=== PATIENT | female | born 1965 | race Caucasian/White ===

== ENCOUNTER 2016-09-09 19:46 | Emergency (ER) | payer MEDICAID, OTHER, SELFPAY ==
--- NOTE | 2016-09-09 21:10 | REPUSA ---
CT of the head Clinical history: Headache. Trauma. Technique: Multiple axial CT images were obtained through the head without administration of contrast . Findings: The ventricles and sulci are symmetric bilaterally. There is no evidence of acute hemorrhag e or infarct. There is no midline shift, mass effect, or extra-axial fluid collection. The osseous st ructures are unremarkable. The visualized paranasal sinuses and mastoid air cells are clear. Impression: Negative study.
[2016-09-09] MEDS ORDERED: IBUPROFEN 800 MG TAB As Ordered ONE (21:53)
--- NOTE | 2016-09-09 22:40 | EDDOCDS ---
Physician Documentation [facility] Name: Sandra Lilly Age: 51 yrs Sex: Female : 1965 Arrival Date: 09/09/2016 Time: 19:46 Bed PR Private MD: Odalis Julien M. Disposition: 09/09/16 21:44 Discharged to Home/Self Care. Impression: Unspecified injury of head. - Condition is Stable. - Discharge Instructions: Head Injury, Adult. - Medication Reconciliation, Local Pharmacy Hours form. - Follow up: Александр Hawkins; When: As needed; Reason: Further diagnostic work-up. Follow up: Odalis Julien; When: Call to arrange an appointment; Reason: Recheck today's complaints, Continuance of care. - Problem is new. - Symptoms have improved. Historical: - Allergies: no known allergies; - Home Meds: 1. Methadone 45mg Oral once daily - PMHx: Sleep Apnea w/ CPAP; - PSHx: none; - Social history: Smoking status: Patient uses tobacco products, heavy tobacco smoker. No barriers to communication noted, The patient speaks fluent Lithuanian, Speaks appropriately for age. - Family history: Not pertinent. - : The pt / caregiver states he / she is not on anticoagulants. Home medication list is obtained from the patient. - Exposure Risk Screening:: None identified. 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 5 in. (165.10 cm) (R); Pain 6/10; 21:56 BP 170 / 100; Pulse 79; Resp 18; Temp 98.4(O); Pulse Ox 95% on R/A; Pain 5/10; mcp 22:36 BP 169 / 74 RA Sitting (auto/reg); cln 19:48 Body Mass Index 32.95 (89.81 kg, 165.10 cm) gr2 MDM: 20:37 CT Head Without Contrast Ordered. EDMS 21:18 Financial registration complete. gjb 21:53 Ibuprofen 800 mg PO once ordered. ar2 21:58 [facility] Payment Agreement was scanned into [employer] and attached to record. gjb Administered Medications: : Drug: Ibuprofen 800 mg [ibuprofen 800 mg tablet (1 tabs)] Route: PO; [facility] Signatures: Dispatcher [employer] Joy Cancino RN RN Anjum Collazo PA-C PA-C ar2 Myrtle Vines RN RN terry3 Chaparrita Orosco The chart was reviewed and I authenticate all verbal orders and agree with the evaluation and treatment provided.Attachments: :58 [facility] Payment Agreement gjb MTDD
--- NOTE | 2016-09-09 22:40 | EDDOCDS ---
Nurse's Notes [facility] Name: Sandra Lilly Age: 51 yrs Sex: Female : 1965 Arrival Date: 09/09/2016 Time: 19:46 Bed PR Private MD: Odalis Julien M. Diagnosis: Unspecified injury of head Presentation: 09/09 19:55 Presenting complaint: Patient states: seen at eye MD today and was told eyes were kc3 fluttering and sent here for eval. Pt reports fell x 3 weeks ago on the ice with reported head injury. Pt reports was not seen for fall. Pt sent here by MD at [facility]. This patient has no additional risk factors. Adult Sepsis Screening: The patient does not have new or worsening altered mentation. Patient's respiratory rate is less than 22. Systolic blood pressure is greater than 100. Patient has a qSOFA score of 0- Negative Sepsis Screen. Suicide/Homicide risk assessment- the patient denies having any suicidal and/or homicidal ideations and does not present with any other emotional, behavioral or mental health complaints. 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 Transition of care: patient was not received from another setting of care. 19:55 Acuity: SUSANA Level 3 kc3 19:55 Method Of Arrival: Walkin/Carried/Asstd kc3 Triage Assessment: 19:59 Headache History: A change in the character of the headache the patient is experiencing kc3 has occured. General: Appears in no apparent distress, comfortable, Behavior is appropriate for age, cooperative. Pain: Pain currently is 5 out of 10 on a pain scale. Pain began 3weeks ago, pain is intermittent Also complains of inability to concentrate, shortness of breath. Pt Declines HIV testing. Neurological: Level of Consciousness is awake, alert, obeys commands, Oriented to person, place, time. Respiratory: Respiratory effort is even, unlabored. 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 Methadone 45mg Oral once daily - PMHx: Sleep Apnea w/ CPAP; - PSHx: none; - Social history: Smoking status: Patient uses tobacco products, heavy tobacco smoker. No barriers to communication noted, The patient speaks fluent Upper Sorbian, Speaks appropriately for age. - Family history: Not pertinent. - : The pt / caregiver states he / she is not on anticoagulants. Home medication list is obtained from the patient. - Exposure Risk Screening:: None identified. Screenin:57 Screening information is obtained from the patient. Fall risk: No risks identified. mcp Assistance ADL's: requires no assistance with activities of daily living. Abuse/DV Screen: The patient / caregiver reports he/she is: not in a situation that causes fear, pain or injury. Nutritional screening: No deficits noted. Advance Directives: There is no active DNR order. home support is adequate. Assessment: 21:56 General: Pts bp elevated 170/100. Estela Land notified and Motrin 800mg given for mcp headache. To check bp in 30 minutes. 22:38 General: States headache less. BP decreased. [facility] Vital Signs: 19:48 BP 142 / 88; Pulse 82; Resp 18 S; Temp 98.9(O); Pulse Ox 98% on R/A; Weight 89.81 kg gr2 (R); Height 5 ft. 5 in. (165.10 cm) (R); Pain 6/10; 21:56 BP 170 / 100; Pulse 79; Resp 18; Temp 98.4(O); Pulse Ox 95% on R/A; Pain 5/10; mcp 22:36 BP 169 / 74 RA Sitting (auto/reg); cln 19:48 Body Mass Index 32.95 (89.81 kg, 165.10 cm) gr2 Vitals: 19:48 Log In Time: September 09, 2016 at 19:48. gr2 ED Course: 19:48 Patient visited by Italo Arango. gr2 19:48 Odalis Julien is Private Physician. gr2 19:48 Patient moved to Waiting gr2 19:50 Patient visited by Italo Arango. gr2 19:50 Patient moved to Pre RCE gr2 19:58 Triage Initiated kc3 20:02 Patient moved to Triage 3 kc3 20:21 Anjum Land PA-C is PHCP. ar2 20:21 Ole Vang DO is Attending Physician. ar2 20:21 Patient visited by Anjum Land PA-C. ar2 20:45 Patient moved to TR2 cz 21:10 CT Head Without Contrast Returned. EDMS 21:29 Patient moved to PR1 / 25 cln 21:43 Александр Hawkins is Referral Physician. ar2 21:43 Odalis Julien is Referral Physician. ar2 21:57 Patient name changed from Sandra\S\\S\Lilly\S\ to Sandra\S\ \S\Lilly. EDMS 21:57 Patient visited by Joy Mckeon RN. [facility] 21:57 The patient / caregiver is instructed regarding the plan of care and ED course. Patient mcp has correct armband on for positive identification. Bed in low position. Call light in reach. Adult w/ patient. 21:57 No IV's were initiated during this patient's visit. No procedures done that require mcp assistance. 21:58 [facility] Payment Agreement was scanned into [employer] and attached to record. [facility] 22:36 Patient visited by Danyelle Siddiqi PCA. cln Administered Medications: 21:58 Drug: Ibuprofen 800 mg [ibuprofen 800 mg tablet (1 tabs)] Route: PO; [facility] Order Results: Radiology Order: CT Head Without Contrast Test: CT Head Without Contrast REASON FOR EXAMINATION: posterior trauma; ; CT of the head; Clinical history: Headache. Trauma.; Technique: Multiple axial CT images were obtained through the head without administration of contrast; .; Findings: The ventricles and sulci are symmetric bilaterally. There is no evidence of acute hemorrhag; e or infarct. There is no midline shift, mass effect, or extra-axial fluid collection. The osseous st; ructures are unremarkable. The visualized paranasal sinuses and mastoid air cells are clear.; Impression: Negative study.; ; Outcome: 21:44 Discharge ordered by Provider. ar2 22:38 Discharge Assessment: patient administered narcotics - no. The following High Risk [facility] Discharge criteria are identified: None. Discharged to home ambulatory, with significant other. Condition: stable. Discharge instructions given to patient, Instructed on discharge instructions, follow up and referral plans. Demonstrated understanding of instructions, Pt was receptive of discharge instructions/ teaching. CT Study completed. Property sent home with patient. 22:39 Patient left the ED. [facility] Signatures: Dispatcher [facility] EDNM Joy Mckeon RN RN mcp Zecher, Calvin, RN RN cz Robertshaw, Anjum, PA-C PAJames ar2 Italo Arango gr2 Myrtle Vines,BRENDEN RN kc3 Chaparrita Orosco, Danyelle, JESSICA GOODWILL AMBASSADOR cln MTDD
--- NOTE | 2016-09-11 23:40 | EDDOCDS ---
Nurse's Notes [facility] Name: Sandra Lilly Age: 51 yrs Sex: Female : 1965 Arrival Date: 09/09/2016 Time: 19:46 Bed PR Private MD: Odalis Julien M. Diagnosis: Unspecified injury of head Presentation: 09/09 19:55 Presenting complaint: Patient states: seen at eye MD today and was told eyes were kc3 fluttering and sent here for eval. Pt reports fell x 3 weeks ago on the ice with reported head injury. Pt reports was not seen for fall. Pt sent here by MD at [facility]. This patient has no additional risk factors. Adult Sepsis Screening: The patient does not have new or worsening altered mentation. Patient's respiratory rate is less than 22. Systolic blood pressure is greater than 100. Patient has a qSOFA score of 0- Negative Sepsis Screen. Suicide/Homicide risk assessment- the patient denies having any suicidal and/or homicidal ideations and does not present with any other emotional, behavioral or mental health complaints. Status: Patient is not a director of housing and energy services or dependent. Transition of care: patient was not received from another setting of care. 19:55 Acuity: SUSANA Level 3 kc3 19:55 Method Of Arrival: Walkin/Carried/Asstd kc3 Triage Assessment: 19:59 Headache History: A change in the character of the headache the patient is experiencing kc3 has occured. General: Appears in no apparent distress, comfortable, Behavior is appropriate for age, cooperative. Pain: Pain currently is 5 out of 10 on a pain scale. Pain began 3weeks ago, pain is intermittent Also complains of inability to concentrate, shortness of breath. Pt Declines HIV testing. Neurological: Level of Consciousness is awake, alert, obeys commands, Oriented to person, place, time. Respiratory: Respiratory effort is even, unlabored. 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 Methadone 45mg Oral once daily - PMHx: Sleep Apnea w/ CPAP; - PSHx: none; - Social history: Smoking status: Patient uses tobacco products, heavy tobacco smoker. No barriers to communication noted, The patient speaks fluent Latvian, Speaks appropriately for age. - Family history: Not pertinent. - : The pt / caregiver states he / she is not on anticoagulants. Home medication list is obtained from the patient. - Exposure Risk Screening:: None identified. Screenin:57 Screening information is obtained from the patient. Fall risk: No risks identified. mcp Assistance ADL's: requires no assistance with activities of daily living. Abuse/DV Screen: The patient / caregiver reports he/she is: not in a situation that causes fear, pain or injury. Nutritional screening: No deficits noted. Advance Directives: There is no active DNR order. home support is adequate. Assessment: 21:56 General: Pts bp elevated 170/100. Estela Land notified and Motrin 800mg given for mcp headache. To check bp in 30 minutes. 22:38 General: States headache less. BP decreased. [facility] Vital Signs: 19:48 BP 142 / 88; Pulse 82; Resp 18 S; Temp 98.9(O); Pulse Ox 98% on R/A; Weight 89.81 kg gr2 (R); Height 5 ft. 5 in. (165.10 cm) (R); Pain 6/10; 21:56 BP 170 / 100; Pulse 79; Resp 18; Temp 98.4(O); Pulse Ox 95% on R/A; Pain 5/10; mcp 22:36 BP 169 / 74 RA Sitting (auto/reg); cln 19:48 Body Mass Index 32.95 (89.81 kg, 165.10 cm) gr2 Vitals: 19:48 Log In Time: September 09, 2016 at 19:48. gr2 ED Course: 19:48 Patient visited by Italo Arango. gr2 19:48 Odalis Julien is Private Physician. gr2 19:48 Patient moved to Waiting gr2 19:50 Patient visited by Italo Arango. gr2 19:50 Patient moved to Pre RCE gr2 19:58 Triage Initiated kc3 20:02 Patient moved to Triage 3 kc3 20:21 Anjum Land PA-C is PHCP. ar2 20:21 Ole Vang DO is Attending Physician. ar2 20:21 Patient visited by Anjum Land PA-C. ar2 20:45 Patient moved to TR2 cz 21:10 CT Head Without Contrast Returned. EDMS 21:29 Patient moved to PR1 / cln 21:43 Александр Hawkins is Referral Physician. ar2 21:43 Odalis Julien is Referral Physician. ar2 21:57 Patient name changed from Sandra\S\\S\Lilly\S\ to Sandra\S\ \S\Lilly. EDMS 21:57 Patient visited by Joy Mckeon RN. mcp 21:57 The patient / caregiver is instructed regarding the plan of care and ED course. Patient mcp has correct armband on for positive identification. Bed in low position. Call light in reach. Adult w/ patient. 21:57 No IV's were initiated during this patient's visit. No procedures done that require mcp assistance. 21:58 [facility] Payment Agreement was scanned into [employer] and attached to record. gjb 22:36 Patient visited by Danyelle Siddiqi PCA. cln 09/10 10:13 T-Sheet-- Draft Copy was scanned into [employer] and attached to record. gb 10:13 Radiology Report was scanned into [employer] and attached to record. gb Administered Medications: 09/09 21:58 Drug: Ibuprofen 800 mg [ibuprofen 800 mg tablet (1 tabs)] Route: PO; mcp Order Results: Radiology Order: CT Head Without Contrast Test: CT Head Without Contrast REASON FOR EXAMINATION: posterior trauma; ; CT of the head; Clinical history: Headache. Trauma.; Technique: Multiple axial CT images were obtained through the head without administration of contrast; .; Findings: The ventricles and sulci are symmetric bilaterally. There is no evidence of acute hemorrhag; e or infarct. There is no midline shift, mass effect, or extra-axial fluid collection. The osseous st; ructures are unremarkable. The visualized paranasal sinuses and mastoid air cells are clear.; Impression: Negative study.; ; Outcome: 21:44 Discharge ordered by Provider. ar2 22:38 Discharge Assessment: patient administered narcotics - no. The following High Risk mcp Discharge criteria are identified: None. Discharged to home ambulatory, with significant other. Condition: stable. Discharge instructions given to patient, Instructed on discharge instructions, follow up and referral plans. Demonstrated understanding of instructions, Pt was receptive of discharge instructions/ teaching. CT Study completed. Property sent home with patient. 22:39 Patient left the ED. [facility] Signatures: Dispatcher [employer] Joy Cancino RN RN Macario Kim RN RN cz Barnhardt, Gloria, Jean Reg Anjum Fofana PA-C PAJames ar2 Italo Arango gr2 Myrtle Vines RN RN kc3 Chaparrita Oroscob Danyelle Siddiqi, JESSICA AXLE TURNER cln Chart Complete MTDD
--- NOTE | 2016-09-11 23:40 | EDDOCDS ---
Physician Documentation [facility] Name: Sandra Lilly Age: 51 yrs Sex: Female : 1965 Arrival Date: 09/09/2016 Time: 19:46 Bed PR Private MD: Odalis Julien M. Disposition: 09/09/16 21:44 Discharged to Home/Self Care. Impression: Unspecified injury of head. - Condition is Stable. - Discharge Instructions: Head Injury, Adult. - Medication Reconciliation, Local Pharmacy Hours form. - Follow up: Александр Hawkins; When: As needed; Reason: Further diagnostic work-up. Follow up: Odalis Julien; When: Call to arrange an appointment; Reason: Recheck today's complaints, Continuance of care. - Problem is new. - Symptoms have improved. Historical: - Allergies: no known allergies; - Home Meds: 1. Methadone 45mg Oral once daily - PMHx: Sleep Apnea w/ CPAP; - PSHx: none; - Social history: Smoking status: Patient uses tobacco products, heavy tobacco smoker. No barriers to communication noted, The patient speaks fluent Vietnamese, Speaks appropriately for age. - Family history: Not pertinent. - : The pt / caregiver states he / she is not on anticoagulants. Home medication list is obtained from the patient. - Exposure Risk Screening:: None identified. 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 5 in. (165.10 cm) (R); Pain 6/10; 21:56 BP 170 / 100; Pulse 79; Resp 18; Temp 98.4(O); Pulse Ox 95% on R/A; Pain 5/10; mcp 22:36 BP 169 / 74 RA Sitting (auto/reg); cln 19:48 Body Mass Index 32.95 (89.81 kg, 165.10 cm) gr2 MDM: 20:37 CT Head Without Contrast Ordered. EDMS 21:18 Financial registration complete. gjb 21:53 Ibuprofen 800 mg PO once ordered. ar2 21:58 [facility] Payment Agreement was scanned into [employer] and attached to record. gjb 09/10 10:13 T-Sheet-- Draft Copy was scanned into [employer] and attached to record. gb 10:13 Radiology Report was scanned into [employer] and attached to record. gb Administered Medications: 09/09 21:58 Drug: Ibuprofen 800 mg [ibuprofen 800 mg tablet (1 tabs)] Route: PO; [facility] Signatures: Dispatcher [employer] Joy Cancino RN RN Jeanette Montoya, Reg Reg Anjum Fofana PA-C PAJames ar2 Myrtle Vines RN RN kc3 Chaparrita Orosco The chart was reviewed and I authenticate all verbal orders and agree with the evaluation and treatment provided.Attachments: 21:58 [facility] Payment Agreement [facility] 09/10 10:13 T-Sheet-- Draft Copy gb Chart Complete MTDD
--- NOTE | 2016-09-11 23:40 | EDDOCDS ---
Physician Documentation [facility] Name: Sandra Lilly Age: 51 yrs Sex: Female : 1965 Arrival Date: 09/09/2016 Time: 19:46 Bed PR Private MD: Odalis Julien M. Disposition: 09/09/16 21:44 Discharged to Home/Self Care. Impression: Unspecified injury of head. - Condition is Stable. - Discharge Instructions: Head Injury, Adult. - Medication Reconciliation, Local Pharmacy Hours form. - Follow up: Александр Hawkins; When: As needed; Reason: Further diagnostic work-up. Follow up: Odalis Julien; When: Call to arrange an appointment; Reason: Recheck today's complaints, Continuance of care. - Problem is new. - Symptoms have improved. Historical: - Allergies: no known allergies; - Home Meds: 1. Methadone 45mg Oral once daily - PMHx: Sleep Apnea w/ CPAP; - PSHx: none; - Social history: Smoking status: Patient uses tobacco products, heavy tobacco smoker. No barriers to communication noted, The patient speaks fluent Telugu, Speaks appropriately for age. - Family history: Not pertinent. - : The pt / caregiver states he / she is not on anticoagulants. Home medication list is obtained from the patient. - Exposure Risk Screening:: None identified. 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 5 in. (165.10 cm) (R); Pain 6/10; 21:56 BP 170 / 100; Pulse 79; Resp 18; Temp 98.4(O); Pulse Ox 95% on R/A; Pain 5/10; mcp 22:36 BP 169 / 74 RA Sitting (auto/reg); cln 19:48 Body Mass Index 32.95 (89.81 kg, 165.10 cm) gr2 MDM: 20:37 CT Head Without Contrast Ordered. EDMS 21:18 Financial registration complete. gjb 21:53 Ibuprofen 800 mg PO once ordered. ar2 21:58 [facility] Payment Agreement was scanned into [employer] and attached to record. gjb 09/10 10:13 T-Sheet-- Draft Copy was scanned into [employer] and attached to record. gb 10:13 Radiology Report was scanned into [employer] and attached to record. gb Administered Medications: 09/09 21:58 Drug: Ibuprofen 800 mg [ibuprofen 800 mg tablet (1 tabs)] Route: PO; [facility] Signatures: Dispatcher [employer] Joy Cancino RN RN Jeanette Montoya, Reg Reg Anjum Fofana PA-C PAJames ar2 Myrtle Vines RN RN kc3 Chaparrita Orosco The chart was reviewed and I authenticate all verbal orders and agree with the evaluation and treatment provided.Attachments: 21:58 [facility] Payment Agreement [facility] 09/10 10:13 T-Sheet-- Draft Copy gb Chart Complete MTDD
== END 2016-09-09 22:39 | disposition home or self-care (01) ==
LOC: M ED 19:46
DX: S09.90XA Unspecified injury of head, initial encounter (principal); G47.33 Obstructive sleep apnea (adult) (pediatric); Z72.0 Tobacco use; Z79.899 Other long term (current) drug therapy; W00.0XXA Fall on same level due to ice and snow, initial encounter; Y92.89 Other specified places as the place of occurrence of the external cause; Y93.01 Activity, walking, marching and hiking; Y99.9 Unspecified external cause status

== ENCOUNTER → 2017-11-04 | Outpatient (CLI) | payer MEDICAID ==
[2017-11-04 08:36] LABS: HEMATOCRIT 38.6 % (36.0-47.0); HEMOGLOBIN 12.8 g/dl (12.0-15.5); MEAN CORPUSCULAR HEMOGLOBIN 30.2 pg (27.0-33.0); MEAN CORPUSCULAR HGB CONC 33.2 g/dl (32.0-36.5); PLATELET COUNT, AUTOMATED 288 10^3/uL (150-450); RED BLOOD COUNT 4.24 10^6/uL (4.00-5.40); RED CELL DISTRIBUTION WIDTH 12.5 % (11.5-14.5); WHITE BLOOD COUNT 6.5 10^3/uL (4.0-10.0)
[2017-11-04 08:57] LABS: CONTROL LINE HCG INT CTR LINE PRESENT; HCG, SERUM QUALITATIVE NEGATIVE (NEGATIVE)
[2017-11-04 09:03] LABS: ALBUMIN/GLOBULIN RATIO 1.11 (1.00-1.93); ALKALINE PHOSPHATASE 92 U/L (45-117); ALT/SGPT 35 U/L (12-78); ANION GAP 4 MEQ/L (8-16); AST/SGOT 26 U/L (7-37); BILIRUBIN,TOTAL 0.2 MG/DL (0.2-1.0); BLOOD UREA NITROGEN 14 MG/DL (7-18); CALCIUM LEVEL 9.2 MG/DL (8.5-10.1); CARBON DIOXIDE LEVEL 33 MEQ/L (21-32); CHLORIDE LEVEL 107 MEQ/L (98-107); CREATININE FOR GFR 1.09 MG/DL (0.55-1.30); GLOMERULAR FILTRATION RATE 56.1 (>51); GLUCOSE, FASTING 108 MG/DL (70-100); POTASSIUM SERUM 3.9 MEQ/L (3.5-5.1); SODIUM LEVEL 144 MEQ/L (136-145); TOTAL PROTEIN 7.6 GM/DL (6.4-8.2)
[2017-11-04 10:09] LABS: CHLAMYDIA DNA AMPLIFICATION NEGATIVE (NEGATIVE); GC DNA AMPLIFICATION NEGATIVE (NEGATIVE)
[2017-11-06 11:39] LABS: HEPATITIS B SURFACE ANTIGEN NEGATIVE (NEGATIVE)
[2017-11-06 12:08] LABS: HIV 1&2 SCREEN CENTAUR NEGATIVE (NEGATIVE)
[2017-11-06 12:35] LABS: HEPATITIS C VIRUS ABY INDEX > 11.0 INDEX (<0.8)
== END ==
LOC: M LAB 08:03
DX: F11.20 Opioid dependence, uncomplicated (principal); R94.31 Abnormal electrocardiogram [ECG] [EKG]
CPT/HCPCS: 93005

== ENCOUNTER → 2018-04-20 | Outpatient (REF) | payer OTHER ==
[2018-04-20 12:31] LABS: BASO # 0.1 10^3/uL (0.0-0.2); BASO % 0.8 % (0.0-1.0); EOS # 0.2 10^3/uL (0.0-0.50); EOS % 2.9 % (0.0-3.0); HEMATOCRIT 41.2 % (36.0-47.0); HEMOGLOBIN 13.5 g/dl (12.0-15.5); IMMATURE GRANULOCYTE % 0.3 % (0-3.0); LYMPH # 2.5 10^3/uL (1.5-4.5); LYMPH % 33.9 % (24.0-44.0); MEAN CORPUSCULAR HEMOGLOBIN 29.7 pg (27.0-33.0); MEAN CORPUSCULAR HGB CONC 32.8 g/dl (32.0-36.5); MEAN CORPUSCULAR VOLUME 90.5 fl (80.0-96.0); MONO # 0.6 10^3/uL (0.0-0.8); MONO % 7.8 % (0.0-5.0); NEUTROPHILS % 54.3 % (36.0-66.0); PLATELET COUNT, AUTOMATED 257 10^3/uL (150-450); RED BLOOD COUNT 4.55 10^6/uL (4.00-5.40); RED CELL DISTRIBUTION WIDTH 12.8 % (11.5-14.5); WHITE BLOOD COUNT 7.3 10^3/uL (4.0-10.0)
[2018-04-20 12:38] LABS: APPEARANCE, URINE HAZY (CLEAR); BACTERIA, URINE AUTO NEGATIVE (NEGATIVE); BILIRUBIN, URINE AUTO NEGATIVE (NEGATIVE); BLOOD, URINE BLOOD NEGATIVE (NEGATIVE); COLOR, URINE YELLOW (YELLOW); GLUCOSE, URINE (UA) AUTO NEGATIVE (NEGATIVE); KETONE, URINE AUTO NEGATIVE (NEGATIVE); LEUKOCYTE ESTERASE, URINE AUTO TRACE (NEGATIVE); NITRITE, URINE AUTO NEGATIVE (NEGATIVE); PROTEIN, URINE AUTO NEGATIVE (NEGATIVE); RBC, URINE AUTO 2 /HPF (0-3); SPECIFIC GRAVITY URINE AUTO 1.021 (1.002-1.035); SQUAMOUS EPITHELIAL CELL UR AU 1 /HPF (0-6); UROBILINOGEN, URINE AUTO 0.2 mg/dL (0.0-2.0); WBC, URINE AUTO 1 /HPF (0-3)
[2018-04-20 13:35] LABS: ALBUMIN 3.9 GM/DL (3.2-5.2); ALBUMIN/GLOBULIN RATIO 1.22 (1.00-1.93); ALKALINE PHOSPHATASE 82 U/L (45-117); ALT/SGPT 25 U/L (12-78); ANION GAP 8 MEQ/L (8-16); AST/SGOT 20 U/L (7-37); BILIRUBIN,TOTAL 0.4 MG/DL (0.2-1.0); BLOOD UREA NITROGEN 23 MG/DL (7-18); CALCIUM LEVEL 8.9 MG/DL (8.5-10.1); CARBON DIOXIDE LEVEL 28 MEQ/L (21-32); CHLORIDE LEVEL 105 MEQ/L (98-107); GLOMERULAR FILTRATION RATE > 60.0 (>51); GLUCOSE, FASTING 93 MG/DL (70-100); POTASSIUM SERUM 4.2 MEQ/L (3.5-5.1); SODIUM LEVEL 141 MEQ/L (136-145); TOTAL PROTEIN 7.1 GM/DL (6.4-8.2)
== END ==
LOC: M SFHCPLAZ 08:15
DX: R10.9 Unspecified abdominal pain (principal)

== ENCOUNTER → 2018-04-25 | Outpatient (CLI) | payer OTHER | LOC: M RAD 07:42 | DX: R10.9 Unspecified abdominal pain (principal) | CPT/HCPCS: 76775 ==

== ENCOUNTER → 2018-11-04 | Outpatient (CLI) | payer OTHER ==
[2018-11-04 10:55] LABS: HEMATOCRIT 43.1 % (36.0-47.0); HEMOGLOBIN 14.5 g/dl (12.0-15.5); MEAN CORPUSCULAR HEMOGLOBIN 30.7 pg (27.0-33.0); MEAN CORPUSCULAR HGB CONC 33.6 g/dl (32.0-36.5); MEAN CORPUSCULAR VOLUME 91.3 fl (80.0-96.0); PLATELET COUNT, AUTOMATED 234 10^3/uL (150-450); RED BLOOD COUNT 4.72 10^6/uL (4.00-5.40); WHITE BLOOD COUNT 6.9 10^3/uL (4.0-10.0)
--- NOTE | 2018-11-04 11:11 | ECGEPIP ---
Stationary ECG Study [facility] Test Date: 2018-11-04 Pat Name: CHELSEA BRAMBILA Department: Room: - Gender: F Behavioral Health Assistant: : 1965 Requested By: Swapnil Sethi Order Number: [id number] Reading MD: Александр Moffett Measurements Intervals [place] Rate: 62 P: 70 NE: 152 QRS: 52 QRSD: 90 T: 51 QT: 368 QTc: 376 Interpretive Statements SINUS RHYTHM, Within normal limits. Improved T wave morphology compared with 11/04/2017 at 8:30 AM. Electronically Signed On 11-04-2018 11:10:39 EDT by Александр Moffett
[2018-11-04 11:24] LABS: HCG, SERUM QUALITATIVE NEGATIVE (NEGATIVE)
[2018-11-04 11:25] LABS: ALBUMIN 3.9 GM/DL (3.2-5.2); ALT/SGPT 31 U/L (12-78); BILIRUBIN,TOTAL 0.2 MG/DL (0.2-1.0); BLOOD UREA NITROGEN 20 MG/DL (7-18); CALCIUM LEVEL 8.8 MG/DL (8.5-10.1); CARBON DIOXIDE LEVEL 32 MEQ/L (21-32); CHLORIDE LEVEL 106 MEQ/L (98-107); CREATININE FOR GFR 0.84 MG/DL (0.55-1.30); GLOMERULAR FILTRATION RATE > 60.0 (>51); GLUCOSE, FASTING 130 MG/DL (70-100); POTASSIUM SERUM 4.4 MEQ/L (3.5-5.1); SODIUM LEVEL 143 MEQ/L (136-145); TOTAL PROTEIN 6.8 GM/DL (6.4-8.2)
[2018-11-04 12:37] LABS: CHLAMYDIA DNA AMPLIFICATION NEGATIVE (NEGATIVE); GC DNA AMPLIFICATION NEGATIVE (NEGATIVE)
[2018-11-05 10:26] LABS: HEPATITIS B SURFACE ANTIGEN NEGATIVE (NEGATIVE)
[2018-11-05 10:55] LABS: HIV 1&2 SCREEN CENTAUR NEGATIVE (NEGATIVE)
[2018-11-05 11:04] LABS: HEPATITIS C VIRUS ABY INDEX > 11.0 INDEX (<0.8)
== END ==
LOC: M LAB 10:18
PROVIDERS: ATTEND Family Medicine
DX: F11.20 Opioid dependence, uncomplicated (principal)

== ENCOUNTER → 2020-04-04 | Outpatient (CLI) | payer OTHER ==
[2020-04-04 09:22] LABS: HEMATOCRIT 46.7 % (36.0-47.0); HEMOGLOBIN 15.2 g/dl (12.0-15.5); MEAN CORPUSCULAR HEMOGLOBIN 30.3 pg (27.0-33.0); MEAN CORPUSCULAR HGB CONC 32.5 g/dl (32.0-36.5); PLATELET COUNT, AUTOMATED 193 10^3/uL (150-450); RED BLOOD COUNT 5.02 10^6/uL (4.00-5.40); WHITE BLOOD COUNT 6.8 10^3/uL (4.0-10.0)
[2020-04-04 10:02] LABS: HCG, SERUM QUALITATIVE NEGATIVE (NEGATIVE)
[2020-04-04 11:35] LABS: CHLAMYDIA DNA AMPLIFICATION NEGATIVE (NEGATIVE); GC DNA AMPLIFICATION NEGATIVE (NEGATIVE)
[2020-04-04 14:45] LABS: ALBUMIN 3.8 GM/DL (3.2-5.2); ALT/SGPT 24 U/L (12-78); BILIRUBIN,TOTAL 0.2 MG/DL (0.2-1.0); BLOOD UREA NITROGEN 18 MG/DL (7-18); CALCIUM LEVEL 8.9 MG/DL (8.5-10.1); CARBON DIOXIDE LEVEL 31 MEQ/L (21-32); CHLORIDE LEVEL 107 MEQ/L (98-107); CREATININE FOR GFR 0.73 MG/DL (0.55-1.30); GLOMERULAR FILTRATION RATE > 60.0 (>51); GLUCOSE, FASTING 113 MG/DL (70-100); HCG, SERUM QUANTITATIVE 4 MIU/ML; POTASSIUM SERUM 4.4 MEQ/L (3.5-5.1); SODIUM LEVEL 139 MEQ/L (136-145)
[2020-04-06 10:06] LABS: HEPATITIS B SURFACE ANTIGEN NEGATIVE (NEGATIVE)
[2020-04-06 10:34] LABS: HIV 1&2 SCREEN CENTAUR NEGATIVE (NEGATIVE)
--- NOTE | 2020-04-08 11:50 | ECGEPIP ---
[facility] Test Date: 2020-04-04 Pat Name: CHELSEA BRAMBILA Department: Room: - Gender: Female Surveillance Investigator: RF : 1965 Requested By: Swapnil Sethi Order Number: [id number] Reading MD: Efren Mendoza Measurements Intervals [place] Rate: 55 P: 72 RI: 170 QRS: 41 QRSD: 87 T: 47 QT: 416 QTc: 401 Interpretive Statements SINUS BRADYCARDIA OTHERWISE NS SEE DOWNTIME SCANNED RECORD
== END ==
LOC: M LAB 08:16
PROVIDERS: ATTEND Family Medicine
DX: F11.10 Opioid abuse, uncomplicated (principal)

== ENCOUNTER → 2020-06-26 | Outpatient (CLI) | payer OTHER | LOC: M LABSMTC 13:25 | PROVIDERS: ATTEND Family Medicine | DX: Z20.828 Contact with and (suspected) exposure to other viral communicable diseases (principal) ==

== ENCOUNTER → 2020-09-14 | Outpatient (CLI) | payer SELFPAY | LOC: M LABSMTC 10:58 | PROVIDERS: ATTEND Pediatrics | DX: Z20.822 Contact with and (suspected) exposure to COVID-19 (principal) ==

== ENCOUNTER → 2021-08-18 | Outpatient (REF) | payer OTHER ==
[~2021-08-18] MED LIST: LASI20TA3 PO; PRED10TA2 PO; does not take meds
== END ==
LOC: M LAB REF 13:28
PROVIDERS: ATTEND Pediatrics
DX: E87.5 Hyperkalemia (principal)

== ENCOUNTER → 2021-10-01 | Outpatient (CLI) | payer OTHER ==
[~2021-10-01] MED LIST changes: +ASPI-163 PO; +ATOR40TA75 PO; +METH-1177 PO
== END ==
LOC: M LABSMTC 10:53
PROVIDERS: ATTEND Anesthesiology
DX: Z01.812 Encounter for preprocedural laboratory examination (principal); Z20.822 Contact with and (suspected) exposure to COVID-19

== ENCOUNTER 2021-10-06 11:55 | Day surgery (SDC) | payer OTHER ==
[~2021-10-06] VITALS: Ht 165.1 cm; Wt 88.6 kg
[~2021-10-06 11:55] MED LIST changes: +NS 1,000 ML IV ONE
[2021-10-06] MEDS ORDERED: propofoL 200 MG/20 ML VIAL As Ordered ONE ×2 (14:32→14:43)
[2021-10-06 15:02] VITALS: BP 115/58
== END 2021-10-06 15:24 | disposition home or self-care (01) ==
LOC: M OPP 11:55
PROVIDERS: ATTEND Surgery
DX: Z12.11 Encounter for screening for malignant neoplasm of colon (principal); D12.2 Benign neoplasm of ascending colon; K57.30 Diverticulosis of large intestine without perforation or abscess without bleeding; K64.0 First degree hemorrhoids; G47.30 Sleep apnea, unspecified; Z79.82 Long term (current) use of aspirin; Z79.899 Other long term (current) drug therapy; F17.210 Nicotine dependence, cigarettes, uncomplicated; Z86.74 Personal history of sudden cardiac arrest; Z87.448 Personal history of other diseases of urinary system

== ENCOUNTER 2021-11-20 07:18 | Inpatient (IN) | payer OTHER ==
[~2021-11-20] VITALS: Ht 165.1 cm; Wt 87.2 kg
[~2021-11-20 07:18] MED LIST changes: -NS 1,000 ML IV ONE
[2021-11-20] MEDS ORDERED: CHARCOAL ACTIVATED LIQUID 25 GM/120 ML BTL PO ONE (07:55)
[2021-11-20 08:18] LABS: BASO # 0.1 10^3/uL (0.0-0.2); BASO % 0.9 % (0.0-1.0); EOS # 0.1 10^3/uL (0.0-0.5); EOS % 1.6 % (0.0-3.0); HEMATOCRIT 45.9 % (36.0-47.0); HEMOGLOBIN 14.8 g/dl (12.0-15.5); LYMPH # 1.5 10^3/uL (1.5-5.0); LYMPH % 26.8 % (24.0-44.0); MEAN CORPUSCULAR HEMOGLOBIN 30.2 pg (27.0-33.0); MEAN CORPUSCULAR HGB CONC 32.2 g/dl (32.0-36.5); MEAN CORPUSCULAR VOLUME 93.7 fl (80.0-96.0); MONO # 0.3 10^3/uL (0.0-0.8); MONO % 6.1 % (2.0-8.0); NEUTROPHILS # 3.6 10^3/uL (1.5-8.5); NEUTROPHILS % 64.2 % (36.0-66.0); PLATELET COUNT, AUTOMATED 211 10^3/uL (150-450); WHITE BLOOD COUNT 5.6 10^3/uL (4.0-10.0)
[2021-11-20] MEDS ORDERED: NICOTINE 21MG/24HR 1 EA TRANSDERMAL TD ONE (08:25)
[2021-11-20] MEDS ORDERED: VITMTA PO (08:35)
[2021-11-20] MEDS ORDERED: D32000TA PO (08:35)
[2021-11-20] MEDS ORDERED: NICO21DI37 TD (08:35)
[2021-11-20] MEDS ORDERED: METH5SOL PO (08:35)
[2021-11-20] MEDS ORDERED: HOME MED LIST COMPLETE! XX SCH (08:40)
[2021-11-20 08:41] LABS: ACETAMINOPHEN LEVEL < 2.0 UG/ML (10.0-30.0); ALBUMIN 3.8 GM/DL (3.2-5.2); ALT/SGPT 25 U/L (12-78); BILIRUBIN,DIRECT 0.1 MG/DL (0.0-0.2); BILIRUBIN,TOTAL 0.2 MG/DL (0.2-1.0); BLOOD UREA NITROGEN 20 MG/DL (7-18); CALCIUM LEVEL 9.1 MG/DL (8.5-10.1); CARBON DIOXIDE LEVEL 28 MEQ/L (21-32); CHLORIDE LEVEL 111 MEQ/L (98-107); CREATININE FOR GFR 0.74 MG/DL (0.55-1.30); ETHYL ALCOHOL (ETHANOL) < 0.003 % (0.000-0.010); GLOMERULAR FILTRATION RATE > 60.0 (>51); GLUCOSE, FASTING 118 MG/DL (70-100); MAGNESIUM LEVEL 1.8 MG/DL (1.8-2.4); PHOSPHORUS LEVEL 3.1 MG/DL (2.5-4.9); POTASSIUM SERUM 4.4 MEQ/L (3.5-5.1); SALICYLATE LEVEL 3.5 MG/DL (5.0-30.0); SODIUM LEVEL 145 MEQ/L (136-145); TOTAL PROTEIN 6.9 GM/DL (6.4-8.2)
[2021-11-20 08:50] LABS: AMPHETAMINES LEVEL URINE NEGATIVE (NEGATIVE); BARBITURATES URINE NEGATIVE (NEGATIVE); BENZODIAZEPINES URINE NEGATIVE (NEGATIVE); CANNABINOIDS URINE NEGATIVE (NEGATIVE); COCAINE METABOLITE URINE NEGATIVE (NEGATIVE); METHADONE URINE POSITIVE (NEGATIVE); OPIATES URINE NEGATIVE (NEGATIVE); PHENCYCLIDINE URINE NEGATIVE (NEGATIVE)
[2021-11-20] MEDS ORDERED: NALOXONE INJ 0.4MG/1ML VIAL (J2310 PER 1MG) IV STA (09:06)
[2021-11-20 10:46] LABS: RSV AMPLIFICATION NEGATIVE (NEGATIVE)
[2021-11-20] MEDS ORDERED: ACETAMINOPHEN 500 MG TAB PO ONE (11:00)
[2021-11-20] MEDS ORDERED: PANTOPRAZOLE 40MG VIAL IV ONE (17:30)
[2021-11-20] MEDS ORDERED: KETOROLAC 30 MG/ML 1ML VIAL IV ONE (17:30)
[2021-11-20] MEDS: METOCLOPRAMIDE INJ 10MG/2ML VIAL (J2765 PER 1) IV PRN (17:38)
[2021-11-20] MEDS: ATORVASTATIN 20 MG TAB PO SCH (18:20)
[2021-11-20] MEDS: ASPIRIN 81MG ENTERIC TABLET PO SCH (18:25)
[2021-11-20 22:40] VITALS: BP 131/62
[2021-11-20] MEDS ORDERED: ACETAMINOPHEN 325 MG TAB PO ONE (23:30)
[2021-11-21] VITALS (54 sets, daily range): BP systolic 76–222; BP diastolic 48–171
[2021-11-21 06:26] LABS: BASO # 0.1 10^3/uL (0.0-0.2); BASO % 0.4 % (0.0-1.0); HEMATOCRIT 54.7 % (36.0-47.0); HEMOGLOBIN 16.2 g/dl (12.0-15.5); LYMPH # 1.9 10^3/uL (1.5-5.0); LYMPH % 6.3 % (24.0-44.0); MEAN CORPUSCULAR HEMOGLOBIN 30.4 pg (27.0-33.0); MEAN CORPUSCULAR HGB CONC 29.6 g/dl (32.0-36.5); MEAN CORPUSCULAR VOLUME 102.6 fl (80.0-96.0); MONO % 7.7 % (2.0-8.0); NEUTROPHILS # 25.9 10^3/uL (1.5-8.5); NEUTROPHILS % 84.5 % (36.0-66.0); RED BLOOD COUNT 5.33 10^6/uL (4.00-5.40)
[2021-11-21 06:57] LABS: BLOOD UREA NITROGEN 21 MG/DL (7-18); CALCIUM LEVEL 8.8 MG/DL (8.5-10.1); CARBON DIOXIDE LEVEL 39 MEQ/L (21-32); CHLORIDE LEVEL 106 MEQ/L (98-107); GLOMERULAR FILTRATION RATE 54.7 (>51); GLUCOSE, FASTING 294 MG/DL (70-100); POTASSIUM SERUM 5.4 MEQ/L (3.5-5.1); SODIUM LEVEL 143 MEQ/L (136-145)
[2021-11-21] MEDS ORDERED: NALOXONE INJ 0.4MG/1ML VIAL (J2310 PER 1MG) As Ordered ONE ×2 (06:57→07:00)
[2021-11-21] MEDS ORDERED: NALOXONE INJ 0.4MG/1ML VIAL (J2310 PER 1MG) IV STA ×2 (07:00→07:02)
[2021-11-21 07:05] LABS: MONO # 2.4 10^3/uL (0.0-0.8); WHITE BLOOD COUNT 30.7 10^3/uL (4.0-10.0)
[2021-11-21 07:06] LABS: PLATELET COUNT, AUTOMATED 357 10^3/uL (150-450)
[2021-11-21] MEDS ORDERED: LORazepam 2 MG/ML VIAL As Ordered ONE (07:06)
[2021-11-21] MEDS ORDERED: propofoL 200 MG/20 ML VIAL IV STA (07:11)
[2021-11-21] MEDS ORDERED: ROCURONIUM BROMIDE 50 MG/5 ML VIAL IV STA (07:12)
[2021-11-21] MEDS ORDERED: NS 1,000 ML IV ONE (08:00)
[2021-11-21] MEDS: MIDAZOLAM INJ 2MG/2ML VIAL (J2250 PER 1MG) IV PRN ×7 (08:15→23:55)
[2021-11-21] MEDS ORDERED: MIDAZOLAM INJ 2MG/2ML VIAL (J2250 PER 1MG) IV ONE (08:30)
[2021-11-21] MEDS: propofoL 1,000 MG in IV 1 EA IV SCH ×2 (08:33→23:48)
[2021-11-21] MEDS: PIPERACILLIN/TAZOBACTAM SOD 4.5 GM in D5W MINI-BAG PLUS 50 ML IV SCH ×3 (08:33→19:10)
[2021-11-21] MEDS: ENOXAPARIN 40MG/0.4ML SYRINGE (J1650 PER 10MG) SC SCH (08:34)
[2021-11-21] MEDS: PANTOPRAZOLE 40MG VIAL IV SCH (08:34)
[2021-11-21] MEDS: ASPIRIN 81MG ENTERIC TABLET PO SCH (10:14)
[2021-11-21] MEDS: ATORVASTATIN 20 MG TAB PO SCH (10:14)
[2021-11-21] MEDS: NS 1,000 ML IV SCH ×2 (10:15→21:36)
[2021-11-21 11:24] LABS: ABG BASE EXCESS 2.7 (-2.0-2.0); ABG HCO3 29.6 MEQ/L (22.0-26.0); ABG O2 SATURATION 91.9 % (95.0-99.0); ABG PARTIAL PRESSURE CO2 53.8 mmHg (35.0-45.0); ABG PARTIAL PRESSURE O2 51.7 mmHg (75.0-100.0); ABG STANDARD HCO3 26.7 MEQ/L (22.0-26.0); ABG TOTAL CO2 31.2 MEQ/L (22.0-29.0); ABG pH (ARTERIAL) 7.358 UNITS (7.350-7.450)
[2021-11-21] MEDS: CHLORHEXIDINE GLUCONATE 0.12 % 15ML UDC (PERIDEX ORAL RINSE) MT SCH ×2 (12:43→21:35)
[2021-11-21 12:59] LABS: APPEARANCE, URINE TURBID (CLEAR); BACTERIA, URINE AUTO NEGATIVE (NEGATIVE); BILIRUBIN, URINE AUTO NEGATIVE (NEGATIVE); BLOOD, URINE BLOOD NEGATIVE (NEGATIVE); COLOR, URINE YELLOW (YELLOW); GLUCOSE, URINE (UA) AUTO 3+ mg/dL (NEGATIVE); KETONE, URINE AUTO NEGATIVE (NEGATIVE); LEUKOCYTE ESTERASE, URINE AUTO NEGATIVE (NEGATIVE); MUCUS, URINE SMALL (NEGATIVE); NITRITE, URINE AUTO NEGATIVE (NEGATIVE); PROTEIN, URINE AUTO 2+ mg/dL (NEGATIVE); RBC, URINE AUTO 4 /HPF (0-3); SPECIFIC GRAVITY URINE AUTO 1.022 (1.002-1.035); SQUAMOUS EPITHELIAL CELL UR AU 2 /HPF (0-6); UROBILINOGEN, URINE AUTO 0.2 mg/dL (0.0-2.0); WBC, URINE AUTO 5 /HPF (0-3)
[2021-11-21] MEDS ORDERED: MIDAZOLAM 5MG/ML 1ML VIAL (J2250 PER 1MG) IV ONE (14:40)
[2021-11-21] MEDS: fentaNYL 100 MCG/2 ML INJECTION IV PRN ×2 (20:29→22:58)
[2021-11-22] VITALS (28 sets, daily range): BP systolic 101–159; BP diastolic 55–92; O2SAT 93
[2021-11-22] MEDS: MIDAZOLAM INJ 2MG/2ML VIAL (J2250 PER 1MG) IV PRN ×3 (01:18→05:03)
[2021-11-22] MEDS: fentaNYL 100 MCG/2 ML INJECTION IV PRN ×2 (01:18→05:04)
[2021-11-22] MEDS: PIPERACILLIN/TAZOBACTAM SOD 4.5 GM in D5W MINI-BAG PLUS 50 ML IV SCH ×4 (01:35→18:26)
[2021-11-22] MEDS: propofoL 1,000 MG in IV 1 EA IV SCH ×2 (02:25→05:54)
[2021-11-22 05:06] LABS: BASO % 0.2 % (0.0-1.0); EOS % 0.3 % (0.0-3.0); HEMOGLOBIN 13.9 g/dl (12.0-15.5); LYMPH % 19.2 % (24.0-44.0); MEAN CORPUSCULAR HEMOGLOBIN 30.3 pg (27.0-33.0); MEAN CORPUSCULAR HGB CONC 32.8 g/dl (32.0-36.5); MEAN CORPUSCULAR VOLUME 92.4 fl (80.0-96.0); MONO # 0.8 10^3/uL (0.0-0.8); NEUTROPHILS # 7.6 10^3/uL (1.5-8.5); NEUTROPHILS % 72.2 % (36.0-66.0); RED BLOOD COUNT 4.59 10^6/uL (4.00-5.40); WHITE BLOOD COUNT 10.5 10^3/uL (4.0-10.0)
[2021-11-22 05:17] LABS: PLATELET COUNT, AUTOMATED 152 10^3/uL (150-450)
[2021-11-22 05:39] LABS: BLOOD UREA NITROGEN 22 MG/DL (7-18); CARBON DIOXIDE LEVEL 28 MEQ/L (21-32); CHLORIDE LEVEL 111 MEQ/L (98-107); CREATININE FOR GFR 0.99 MG/DL (0.55-1.30); GLOMERULAR FILTRATION RATE > 60.0 (>51); GLUCOSE, FASTING 90 MG/DL (70-100); POTASSIUM SERUM 4.2 MEQ/L (3.5-5.1); SODIUM LEVEL 142 MEQ/L (136-145)
[2021-11-22] MEDS: CHLORHEXIDINE GLUCONATE 0.12 % 15ML UDC (PERIDEX ORAL RINSE) MT SCH (08:15)
[2021-11-22] MEDS: ASPIRIN 81 MG CHEW TABLET PO SCH (08:15)
[2021-11-22] MEDS: NS 1,000 ML IV SCH ×2 (08:15→18:26)
[2021-11-22] MEDS: ENOXAPARIN 40MG/0.4ML SYRINGE (J1650 PER 10MG) SC SCH (08:15)
[2021-11-22] MEDS: ATORVASTATIN 20 MG TAB PO SCH (08:15)
[2021-11-22] MEDS: PANTOPRAZOLE 40MG VIAL IV SCH (08:15)
[2021-11-23] VITALS (14 sets, daily range): BP systolic 112–168; BP diastolic 56–81
[2021-11-23] MEDS: PIPERACILLIN/TAZOBACTAM SOD 4.5 GM in D5W MINI-BAG PLUS 50 ML IV SCH ×4 (00:06→18:29)
[2021-11-23] MEDS ORDERED: ACETAMINOPHEN TAB 650MG DOSE (2X325MG) PO PRN (00:40)
[2021-11-23] MEDS: NS 1,000 ML IV SCH (06:31)
[2021-11-23 06:59] LABS: BASO % 0.2 % (0.0-1.0); EOS % 0.2 % (0.0-3.0); HEMATOCRIT 38.1 % (36.0-47.0); HEMOGLOBIN 12.8 g/dl (12.0-15.5); LYMPH # 1.4 10^3/uL (1.5-5.0); LYMPH % 14.6 % (24.0-44.0); MEAN CORPUSCULAR HEMOGLOBIN 30.6 pg (27.0-33.0); MEAN CORPUSCULAR HGB CONC 33.6 g/dl (32.0-36.5); MEAN CORPUSCULAR VOLUME 91.1 fl (80.0-96.0); MONO # 0.6 10^3/uL (0.0-0.8); MONO % 6.4 % (2.0-8.0); NEUTROPHILS # 7.4 10^3/uL (1.5-8.5); NEUTROPHILS % 78.3 % (36.0-66.0); PLATELET COUNT, AUTOMATED 157 10^3/uL (150-450); RED BLOOD COUNT 4.18 10^6/uL (4.00-5.40); WHITE BLOOD COUNT 9.4 10^3/uL (4.0-10.0)
[2021-11-23 07:25] LABS: BLOOD UREA NITROGEN 18 MG/DL (7-18); CALCIUM LEVEL 8.4 MG/DL (8.5-10.1); CARBON DIOXIDE LEVEL 26 MEQ/L (21-32); CHLORIDE LEVEL 111 MEQ/L (98-107); CREATININE FOR GFR 0.81 MG/DL (0.55-1.30); GLOMERULAR FILTRATION RATE > 60.0 (>51); GLUCOSE, FASTING 84 MG/DL (70-100); POTASSIUM SERUM 3.4 MEQ/L (3.5-5.1); SODIUM LEVEL 147 MEQ/L (136-145)
[2021-11-23] MEDS ORDERED: POTASSIUM CHLORIDE 10MEQ SR TABLET PO ONE (08:15)
[2021-11-23] MEDS: ENOXAPARIN 40MG/0.4ML SYRINGE (J1650 PER 10MG) SC SCH (08:33)
[2021-11-23] MEDS: ATORVASTATIN 20 MG TAB PO SCH (08:33)
[2021-11-23] MEDS: ASPIRIN 81 MG CHEW TABLET PO SCH (08:33)
[2021-11-23] MEDS: METOCLOPRAMIDE INJ 10MG/2ML VIAL (J2765 PER 1) IV PRN (08:40)
[2021-11-23] MEDS ORDERED: METHADONE 10MG TAB PO SCH (09:00)
[2021-11-23] MEDS ORDERED: METHADONE 10MG TAB PO ONE (11:00)
[2021-11-23] MEDS: NICOTINE 21MG/24HR 1 EA TRANSDERMAL TD SCH (19:45)
[2021-11-24] MEDS: PIPERACILLIN/TAZOBACTAM SOD 4.5 GM in D5W MINI-BAG PLUS 50 ML IV SCH ×2 (00:21→06:17)
[2021-11-24 00:24] VITALS: BP 137/77
[2021-11-24 05:16] VITALS: BP 156/77
[2021-11-24 05:30] LABS: BASO % 0.4 % (0.0-1.0); EOS # 0.1 10^3/uL (0.0-0.5); EOS % 1.5 % (0.0-3.0); HEMATOCRIT 39.5 % (36.0-47.0); HEMOGLOBIN 13.2 g/dl (12.0-15.5); LYMPH # 1.6 10^3/uL (1.5-5.0); LYMPH % 21.4 % (24.0-44.0); MEAN CORPUSCULAR HEMOGLOBIN 30.3 pg (27.0-33.0); MEAN CORPUSCULAR HGB CONC 33.4 g/dl (32.0-36.5); MEAN CORPUSCULAR VOLUME 90.8 fl (80.0-96.0); MONO # 0.6 10^3/uL (0.0-0.8); MONO % 7.5 % (2.0-8.0); NEUTROPHILS # 5.2 10^3/uL (1.5-8.5); NEUTROPHILS % 68.9 % (36.0-66.0); PLATELET COUNT, AUTOMATED 157 10^3/uL (150-450); RED BLOOD COUNT 4.35 10^6/uL (4.00-5.40); WHITE BLOOD COUNT 7.5 10^3/uL (4.0-10.0)
[2021-11-24 05:52] LABS: BLOOD UREA NITROGEN 17 MG/DL (7-18); CALCIUM LEVEL 8.7 MG/DL (8.5-10.1); CARBON DIOXIDE LEVEL 27 MEQ/L (21-32); CHLORIDE LEVEL 111 MEQ/L (98-107); CREATININE FOR GFR 0.75 MG/DL (0.55-1.30); GLOMERULAR FILTRATION RATE > 60.0 (>51); GLUCOSE, FASTING 96 MG/DL (70-100); POTASSIUM SERUM 3.4 MEQ/L (3.5-5.1); SODIUM LEVEL 144 MEQ/L (136-145)
[2021-11-24] MEDS ORDERED: POTASSIUM CHLORIDE 10MEQ SR TABLET PO ONE (07:00)
[2021-11-24 07:48] VITALS: BP 169/75
[2021-11-24] MEDS ORDERED: FUROSEMIDE 40MG/4ML VIAL (J1940) IV ONE (08:00)
[2021-11-24] MEDS: ASPIRIN 81 MG CHEW TABLET PO SCH (08:29)
[2021-11-24] MEDS: ENOXAPARIN 40MG/0.4ML SYRINGE (J1650 PER 10MG) SC SCH ×2 (08:29→08:34)
[2021-11-24] MEDS: ATORVASTATIN 20 MG TAB PO SCH (08:30)
[2021-11-24] MEDS: NICOTINE 21MG/24HR 1 EA TRANSDERMAL TD SCH (08:30)
[2021-11-24] MEDS ORDERED: AUGM12TA11 PO (08:36)
[2021-11-24] MEDS ORDERED: METHADONE 10MG TAB PO SCH (09:00)
== END 2021-11-24 11:36 | disposition home or self-care (01) | DRG 917 ==
LOC: EDBD 07:18 → M ED 07:18 → M ED INP 10:27 → M PCU 22:39 → M ICU 11-21 07:19
PROVIDERS: ADMIT Internal Medicine Nephrology; ATTEND Internal Medicine Nephrology
PROC: 0BH17EZ Insertion of Endotracheal Airway into Trachea, Via Natural or Artificial Opening (ICD-10-PCS; principal; 2021-11-21)
PROC: 5A1945Z Respiratory Ventilation, 24-96 Consecutive Hours (ICD-10-PCS; 2021-11-21)
DX: T40.3X1A Poisoning by methadone, accidental (unintentional), initial encounter (principal); J96.02 Acute respiratory failure with hypercapnia; G92.8 Other toxic encephalopathy; J69.0 Pneumonitis due to inhalation of food and vomit; E87.2 Acidosis; D72.829 Elevated white blood cell count, unspecified; G47.33 Obstructive sleep apnea (adult) (pediatric); E66.01 Morbid (severe) obesity due to excess calories; Z79.82 Long term (current) use of aspirin; Z79.899 Other long term (current) drug therapy; Z20.822 Contact with and (suspected) exposure to COVID-19; I48.91 Unspecified atrial fibrillation; I25.2 Old myocardial infarction; F11.11 Opioid abuse, in remission; F17.210 Nicotine dependence, cigarettes, uncomplicated; G40.409 Other generalized epilepsy and epileptic syndromes, not intractable, without status epilepticus; I10 Essential (primary) hypertension

== ENCOUNTER → 2021-11-26 | Outpatient (REF) | payer OTHER ==
[~2021-11-26] MED LIST changes: +AUGM12TA11 PO; +D32000TA PO; +METH5SOL PO; +NICO21DI37 TD; +VITMTA PO
== END ==
LOC: M LAB REF 16:15
PROVIDERS: ATTEND Pediatrics
DX: R30.9 Painful micturition, unspecified (principal)

== ENCOUNTER 2021-12-01 23:16 | Emergency (ER) | payer OTHER ==
[~2021-12-01] VITALS: Ht 165.1 cm; Wt 87.8 kg
[2021-12-01] MEDS ORDERED: ONDANSETRON 4MG/2ML VIAL IV ONE (23:50)
[2021-12-01] MEDS ORDERED: ACETAMINOPHEN TAB 650MG DOSE (2X325MG) PO ONE (23:50)
[2021-12-02] MEDS: HYDROMORPHONE HCL 0.5 MG/ 0.5 ML SYRINGE (J1170 PER 1) IV PRN ×2 (00:11→02:28)
[2021-12-02 00:39] LABS: ALBUMIN 3.9 GM/DL (3.2-5.2); ALT/SGPT 51 U/L (12-78); BILIRUBIN,DIRECT 0.1 MG/DL (0.0-0.2); BILIRUBIN,TOTAL 0.4 MG/DL (0.2-1.0); BLOOD UREA NITROGEN 17 MG/DL (7-18); CALCIUM LEVEL 9.4 MG/DL (8.5-10.1); CARBON DIOXIDE LEVEL 33 MEQ/L (21-32); CHLORIDE LEVEL 101 MEQ/L (98-107); GLOMERULAR FILTRATION RATE > 60.0 (>51); GLUCOSE, FASTING 111 MG/DL (70-100); LIPASE 130 U/L (73-393); POTASSIUM SERUM 4.7 MEQ/L (3.5-5.1); SODIUM LEVEL 139 MEQ/L (136-145); TOTAL PROTEIN 7.1 GM/DL (6.4-8.2)
[2021-12-02 00:58] LABS: RSV AMPLIFICATION NEGATIVE (NEGATIVE)
[2021-12-02 01:04] LABS: BASO % 0.2 % (0.0-1.0); EOS % 0.1 % (0.0-3.0); HEMATOCRIT 45.2 % (36.0-47.0); HEMOGLOBIN 15.2 g/dl (12.0-15.5); LYMPH % 6.3 % (24.0-44.0); MEAN CORPUSCULAR HEMOGLOBIN 30.6 pg (27.0-33.0); MEAN CORPUSCULAR HGB CONC 33.6 g/dl (32.0-36.5); MEAN CORPUSCULAR VOLUME 91.1 fl (80.0-96.0); MONO # 0.5 10^3/uL (0.0-0.8); MONO % 2.8 % (2.0-8.0); NEUTROPHILS # 14.5 10^3/uL (1.5-8.5); NEUTROPHILS % 90.1 % (36.0-66.0); PLATELET COUNT, AUTOMATED 313 10^3/uL (150-450); RED BLOOD COUNT 4.96 10^6/uL (4.00-5.40); WHITE BLOOD COUNT 16.1 10^3/uL (4.0-10.0)
[2021-12-02 03:06] LABS: AMPHETAMINES LEVEL URINE NEGATIVE (NEGATIVE); BARBITURATES URINE NEGATIVE (NEGATIVE); BENZODIAZEPINES URINE NEGATIVE (NEGATIVE); CANNABINOIDS URINE NEGATIVE (NEGATIVE); COCAINE METABOLITE URINE NEGATIVE (NEGATIVE); METHADONE URINE POSITIVE (NEGATIVE); OPIATES URINE POSITIVE (NEGATIVE); PHENCYCLIDINE URINE NEGATIVE (NEGATIVE)
[2021-12-02 05:40] VITALS: BP 159/72
== END 2021-12-02 06:03 | disposition home or self-care (01) ==
LOC: M ED 23:16 → EDBD 23:16 → M ED 12-02 06:03
DX: K52.9 Noninfective gastroenteritis and colitis, unspecified (principal); I25.10 Atherosclerotic heart disease of native coronary artery without angina pectoris; Z79.899 Other long term (current) drug therapy; Z79.891 Long term (current) use of opiate analgesic; Z79.82 Long term (current) use of aspirin; F17.210 Nicotine dependence, cigarettes, uncomplicated
CPT/HCPCS: 74177; 80048; 80076; 80307; 81001; 83605; 83690; 85025; 87040; 87507; 87631; 93041; 96374; 96375; 96376; 99285; J1170; J2405

== ENCOUNTER → 2022-03-21 | Outpatient (REF) | LOC: M LAB 11:35 | PROVIDERS: ATTEND Nurse Practitioner Adult Health | DX: Z02.89 Encounter for other administrative examinations (principal) ==

== ENCOUNTER → 2022-03-23 | Outpatient (REF) | LOC: M LAB 11:39 | PROVIDERS: ATTEND Nurse Practitioner Adult Health | DX: Z78.9 Other specified health status (principal) ==

== ENCOUNTER → 2022-04-17 | Outpatient (CLI) | payer OTHER ==
[2022-04-17 16:14] LABS: HEMATOCRIT 43.3 % (36.0-47.0); HEMOGLOBIN 14.3 g/dl (12.0-15.5); MEAN CORPUSCULAR HEMOGLOBIN 30.2 pg (27.0-33.0); MEAN CORPUSCULAR VOLUME 91.4 fl (80.0-96.0); PLATELET COUNT, AUTOMATED 259 10^3/uL (150-450); RED BLOOD COUNT 4.74 10^6/uL (4.00-5.40)
[2022-04-17 16:55] LABS: HCG, SERUM QUALITATIVE NEGATIVE (NEGATIVE)
[2022-04-17 17:02] LABS: ALT/SGPT 28 U/L (12-78); BILIRUBIN,TOTAL 0.3 MG/DL (0.2-1.0); BLOOD UREA NITROGEN 23 MG/DL (7-18); CALCIUM LEVEL 9.3 MG/DL (8.5-10.1); CARBON DIOXIDE LEVEL 31 MEQ/L (21-32); CHLORIDE LEVEL 106 MEQ/L (98-107); CREATININE FOR GFR 0.91 MG/DL (0.55-1.30); GLOMERULAR FILTRATION RATE > 60.0 (>51); GLUCOSE, FASTING 80 MG/DL (70-100); SODIUM LEVEL 140 MEQ/L (136-145); TOTAL PROTEIN 7.3 GM/DL (6.4-8.2)
[2022-04-17 17:39] LABS: GC DNA AMPLIFICATION NEGATIVE (NEGATIVE)
[2022-04-18 09:03] LABS: HEPATITIS B SURFACE ANTIGEN NEGATIVE (NEGATIVE)
[2022-04-18 09:40] LABS: HEPATITIS C VIRUS ABY INDEX > 11.0 INDEX (<0.8)
[2022-04-18 10:06] LABS: HIV 1&2 SCREEN CENTAUR NEGATIVE (NEGATIVE)
== END ==
LOC: M LAB 15:38
PROVIDERS: ATTEND Family Medicine
DX: F11.21 Opioid dependence, in remission (principal)

== ENCOUNTER 2024-05-11 18:01 | Inpatient (IN) | payer BC, SELFPAY ==
[~2024-05-11] VITALS: Ht 165.1 cm; Wt 87.5 kg
[2024-05-11 19:06] LABS: BASO % 0.2 % (0.0-1.0); HEMATOCRIT 45.6 % (36.0-47.0); HEMOGLOBIN 14.6 g/dl (12.0-15.5); LYMPH # 0.5 10^3/uL (1.5-5.0); LYMPH % 2.8 % (24.0-44.0); MEAN CORPUSCULAR HEMOGLOBIN 31.1 pg (27.0-33.0); MONO # 0.8 10^3/uL (0.0-0.8); MONO % 4.5 % (2.0-8.0); NEUTROPHILS # 15.3 10^3/uL (1.5-8.5); NEUTROPHILS % 91.8 % (36.0-66.0); PLATELET COUNT, AUTOMATED 218 10^3/uL (150-450); WHITE BLOOD COUNT 16.7 10^3/uL (4.0-10.0)
[2024-05-11 19:10] LABS: ABG BASE EXCESS 0.6 (-2.0-2.0); ABG HCO3 29.4 MMOL/L (22.0-26.0); ABG O2 SATURATION 95.4 % (95.0-99.0); ABG PARTIAL PRESSURE O2 80.9 mmHg (75.0-100.0); ABG TOTAL CO2 31.4 MMOL/L (22.0-29.0); ABG pH (ARTERIAL) 7.272 UNITS (7.350-7.450)
[2024-05-11 19:11] LABS: ABG PARTIAL PRESSURE CO2 65.2 mmHg (35.0-45.0)
[2024-05-11 19:29] LABS: CK-MB VALUE MASS 1.2 NG/ML (<3.6); ETHYL ALCOHOL (ETHANOL) 0.003 % (0.000-0.010)
[2024-05-11 19:30] LABS: CPK CREATINE PHOSPHOKINASE 54 U/L (34-145); MB/CK RELATIVE INDEX 2.22 (< OR =4)
[2024-05-11 19:31] LABS: ALBUMIN 3.3 G/DL (3.2-5.2); ALKALINE PHOSPHATASE 87 U/L (46-116); ALT/SGPT 34 U/L (7.0-40); AST/SGOT 24 U/L (<34); BILIRUBIN,DIRECT 0.1 MG/DL (<0.4); BILIRUBIN,TOTAL 0.3 MG/DL (0.3-1.2); BLOOD UREA NITROGEN 20 MG/DL (9-23); CALCIUM LEVEL 8.8 MG/DL (8.5-10.1); CARBON DIOXIDE LEVEL 32 MMOL/L (20-31); CHLORIDE LEVEL 109 MMOL/L (98-107); CREATININE FOR GFR 0.76 MG/DL (0.55-1.30); GLOMERULAR FILTRATION RATE > 60.0 (>51); GLUCOSE, FASTING 216 MG/DL (60-100); SALICYLATE LEVEL < 3.0 MG/DL (<30); SODIUM LEVEL 143 MMOL/L (136-145); TOTAL PROTEIN 6.6 G/DL (5.7-8.2)
[2024-05-11] MEDS ORDERED: APAP500T10 PO (19:31)
[2024-05-11] MEDS ORDERED: ONDA-83 PO (19:31)
[2024-05-11 19:33] LABS: THYROID STIMULATING HORMONE 0.277 uIU/ML (0.55-4.78)
[2024-05-11] MEDS: ONDANSETRON 4MG 2ML VIAL IV ONE ×2 (19:57→21:19)
[2024-05-11] MEDS ORDERED: ISOVUE-370 76% 100ML VIAL As Ordered ONE (19:59)
[2024-05-11] MEDS: ACETAMINOPHEN 325 MG TAB PO ONE (20:50)
[2024-05-11 20:53] LABS: CK-MB VALUE MASS 1.2 NG/ML (<3.6)
[2024-05-11 20:55] LABS: MB/CK RELATIVE INDEX 2.03 (< OR =4)
[2024-05-11 21:20] LABS: AMPHETAMINES LEVEL URINE NEGATIVE (NEGATIVE); BENZODIAZEPINES URINE NEGATIVE (NEGATIVE)
[2024-05-11 21:21] LABS: BARBITURATES URINE NEGATIVE (NEGATIVE); CANNABINOIDS URINE NEGATIVE (NEGATIVE); COCAINE METABOLITE URINE NEGATIVE (NEGATIVE); OPIATES URINE NEGATIVE (NEGATIVE); PHENCYCLIDINE URINE NEGATIVE (NEGATIVE)
[2024-05-11 21:23] LABS: METHADONE URINE POSITIVE (NEGATIVE)
[2024-05-11 21:24] LABS: ABG BASE EXCESS -2.3 (-2.0-2.0); ABG HCO3 27.2 MMOL/L (22.0-26.0); ABG O2 SATURATION 97.5 % (95.0-99.0); ABG PARTIAL PRESSURE O2 104.6 mmHg (75.0-100.0); ABG STANDARD HCO3 22.6 MMOL/L. (22.0-26.0); ABG TOTAL CO2 29.3 MMOL/L (22.0-29.0)
[2024-05-11 21:27] LABS: ABG PARTIAL PRESSURE CO2 67.8 mmHg (35.0-45.0); ABG pH (ARTERIAL) 7.221 UNITS (7.350-7.450)
[2024-05-11] MEDS: PIPERACILLIN/TAZOBACTAM SOD 4.5 GM in DEXTROSE 5% (D5W) ADV/MINI-BAG 50 ML IV ONE (22:55)
[2024-05-12] VITALS (21 sets, daily range): BP systolic 117–182; BP diastolic 56–85; TEMP 97.6–100.8; O2SAT 86–98
[2024-05-12] MEDS ORDERED: MULTTAB61 PO (00:21)
[2024-05-12] MEDS ORDERED: MED REC IN PROGRESS XX SCH (00:25)
[2024-05-12] MEDS ORDERED: IPRATROPIUM 0.5MG/ALBUTEROL 2.5MG INH SOL UD 3ML (DUONEB) NEB PRN (00:25)
[2024-05-12] MEDS: IPRATROPIUM 0.5MG/ALBUTEROL 2.5MG INH SOL UD 3ML (DUONEB) NEB SCH ×2 (01:20→11:56)
[2024-05-12 01:43] LABS: CK-MB VALUE MASS 1.4 NG/ML (<3.6)
[2024-05-12 01:49] LABS: MB/CK RELATIVE INDEX 1.57 (< OR =4)
[2024-05-12] MEDS: ACETAMINOPHEN 325 MG TAB PO PRN (02:43)
[2024-05-12 03:40] LABS: ABG BASE EXCESS 1.5 (-2.0-2.0); ABG HCO3 32.2 MMOL/L (22.0-26.0); ABG O2 SATURATION 98.7 % (95.0-99.0); ABG PARTIAL PRESSURE O2 159.2 mmHg (75.0-100.0); ABG STANDARD HCO3 25.8 MMOL/L. (22.0-26.0); ABG TOTAL CO2 34.7 MMOL/L (22.0-29.0)
[2024-05-12 03:44] LABS: ABG pH (ARTERIAL) 7.215 UNITS (7.350-7.450)
[2024-05-12 03:48] LABS: ABG PARTIAL PRESSURE CO2 81.5 mmHg (35.0-45.0)
[2024-05-12] MEDS: methylPREDNISolone 40MG 1ML VIAL IV SCH (03:54)
[2024-05-12] MEDS: PIPERACILLIN/TAZOBACTAM SOD 4.5 GM in DEXTROSE 5% (D5W) ADV/MINI-BAG 50 ML IV SCH (04:00)
[2024-05-12 05:07] LABS: BASO % 0.1 % (0.0-1.0); HEMATOCRIT 47.1 % (36.0-47.0); HEMOGLOBIN 14.8 g/dl (12.0-15.5); LYMPH # 0.6 10^3/uL (1.5-5.0); LYMPH % 4.2 % (24.0-44.0); MEAN CORPUSCULAR HEMOGLOBIN 30.8 pg (27.0-33.0); MEAN CORPUSCULAR HGB CONC 31.4 g/dl (32.0-36.5); MEAN CORPUSCULAR VOLUME 97.9 fl (80.0-96.0); MONO # 0.7 10^3/uL (0.0-0.8); NEUTROPHILS # 12.6 10^3/uL (1.5-8.5); NEUTROPHILS % 90.3 % (36.0-66.0); PLATELET COUNT, AUTOMATED 209 10^3/uL (150-450); RED BLOOD COUNT 4.81 10^6/uL (4.00-5.40); WHITE BLOOD COUNT 13.9 10^3/uL (4.0-10.0)
[2024-05-12 05:33] LABS: BLOOD UREA NITROGEN 19 MG/DL (9-23); CALCIUM LEVEL 8.8 MG/DL (8.5-10.1); CARBON DIOXIDE LEVEL 35 MMOL/L (20-31); CHLORIDE LEVEL 108 MMOL/L (98-107); CREATININE FOR GFR 0.69 MG/DL (0.55-1.30); GLOMERULAR FILTRATION RATE > 60.0 (>51); GLUCOSE, FASTING 157 MG/DL (60-100); POTASSIUM SERUM 4.8 MMOL/L (3.5-5.1); SODIUM LEVEL 144 MMOL/L (136-145)
[2024-05-12 05:34] LABS: CK-MB VALUE MASS 1.5 NG/ML (<3.6)
[2024-05-12 05:43] LABS: PROCALCITONIN 1.54 ng/ml
[2024-05-12 05:45] LABS: CPK CREATINE PHOSPHOKINASE 96 U/L (34-145); MB/CK RELATIVE INDEX 1.56 (< OR =4)
[2024-05-12 06:04] LABS: ABG BASE EXCESS 3.7 (-2.0-2.0); ABG HCO3 33.9 MMOL/L (22.0-26.0); ABG O2 SATURATION 95.3 % (95.0-99.0); ABG PARTIAL PRESSURE O2 78.9 mmHg (75.0-100.0); ABG STANDARD HCO3 27.7 MMOL/L. (22.0-26.0); ABG TOTAL CO2 36.3 MMOL/L (22.0-29.0); ABG pH (ARTERIAL) 7.253 UNITS (7.350-7.450)
[2024-05-12 06:06] LABS: ABG PARTIAL PRESSURE CO2 78.5 mmHg (35.0-45.0)
[2024-05-12] MEDS: NICOTINE 21MG/24HR 1 EA TRANSDERMAL TD SCH (08:51)
[2024-05-12] MEDS: ATORVASTATIN 20 MG TAB PO SCH (08:51)
[2024-05-12] MEDS ORDERED: PILL CUTTER 1 EACH XX ONE (09:53)
[2024-05-12] MEDS: METHADONE 10MG TAB PO SCH (09:54)
[2024-05-12] MEDS: ONDANSETRON 4MG 2ML VIAL IV PRN (11:42)
[2024-05-12 12:10] LABS: ABG BASE EXCESS 2.8 (-2.0-2.0); ABG HCO3 34.2 MMOL/L (22.0-26.0); ABG O2 SATURATION 97.5 % (95.0-99.0); ABG PARTIAL PRESSURE O2 106.3 mmHg (75.0-100.0); ABG TOTAL CO2 36.9 MMOL/L (22.0-29.0)
[2024-05-12 12:13] LABS: ABG PARTIAL PRESSURE CO2 89.2 mmHg (35.0-45.0); ABG pH (ARTERIAL) 7.201 UNITS (7.350-7.450)
[2024-05-12] MEDS: PANTOPRAZOLE 40MG VIAL IV SCH (12:14)
[2024-05-12] MEDS: KETOROLAC 30 MG/ML 1ML VIAL IV ONE ×2 (12:14→17:37)
[2024-05-12] MEDS: LR 1,000 ML IV SCH (12:23)
[2024-05-12 13:01] LABS: LIPASE 25 U/L (12-53)
[2024-05-12 13:03] LABS: ALBUMIN 3.2 G/DL (3.2-5.2); ALKALINE PHOSPHATASE 77 U/L (46-116); ALT/SGPT 35 U/L (7.0-40); AST/SGOT 21 U/L (<34); BILIRUBIN,TOTAL 0.4 MG/DL (0.3-1.2); BLOOD UREA NITROGEN 21 MG/DL (9-23); CALCIUM LEVEL 8.9 MG/DL (8.5-10.1); CARBON DIOXIDE LEVEL 38 MMOL/L (20-31); CHLORIDE LEVEL 107 MMOL/L (98-107); CREATININE FOR GFR 0.63 MG/DL (0.55-1.30); GLOMERULAR FILTRATION RATE > 60.0 (>51); GLUCOSE, FASTING 148 MG/DL (60-100); POTASSIUM SERUM 4.2 MMOL/L (3.5-5.1); SODIUM LEVEL 143 MMOL/L (136-145); TOTAL PROTEIN 6.6 G/DL (5.7-8.2)
[2024-05-12] MEDS: cloNIDine 0.1MG TABLET PO ONE (13:48)
[2024-05-12] MEDS ORDERED: dexmedeTOMidine 200 MCG in IV 1 EA IV SCH (17:15)
[2024-05-12] MEDS: ACETAMINOPHEN *IV* 1,000 MG in IV 1 EA IV ONE (17:39)
[2024-05-12] MEDS: LR 1,000 ML IV ONE (17:39)
[2024-05-12] MEDS: SYMBICORT 160/4.5MCG INHALER 6GM INH SCH (18:54)
[2024-05-12] MEDS: MORPHINE 2 MG/ML 1ML VIAL IV ONE (21:13)
[2024-05-12 21:43] LABS: ABG BASE EXCESS 1.1 (-2.0-2.0); ABG HCO3 29.1 MMOL/L (22.0-26.0); ABG O2 SATURATION 93.3 % (95.0-99.0); ABG PARTIAL PRESSURE O2 66.1 mmHg (75.0-100.0); ABG STANDARD HCO3 25.3 MMOL/L. (22.0-26.0); ABG TOTAL CO2 30.9 MMOL/L (22.0-29.0); ABG pH (ARTERIAL) 7.298 UNITS (7.350-7.450)
[2024-05-12 21:46] LABS: ABG PARTIAL PRESSURE CO2 60.7 mmHg (35.0-45.0)
[2024-05-13] VITALS (24 sets, daily range): BP systolic 109–173; BP diastolic 52–85; TEMP 97–98.6; O2SAT 84–99
[2024-05-13] MEDS: ACETAMINOPHEN *IV* 1,000 MG in IV 1 EA IV PRN (00:48)
[2024-05-13] MEDS ORDERED: MORPHINE 2 MG/ML 1ML VIAL IV ONE (05:00)
[2024-05-13] MEDS: METHADONE 10MG TAB PO SCH (05:12)
[2024-05-13 05:14] LABS: BASO % 0.1 % (0.0-1.0); HEMATOCRIT 41.9 % (36.0-47.0); HEMOGLOBIN 13.4 g/dl (12.0-15.5); LYMPH # 0.9 10^3/uL (1.5-5.0); LYMPH % 5.9 % (24.0-44.0); MEAN CORPUSCULAR HEMOGLOBIN 30.7 pg (27.0-33.0); MEAN CORPUSCULAR VOLUME 96.1 fl (80.0-96.0); MONO # 0.8 10^3/uL (0.0-0.8); MONO % 5.7 % (2.0-8.0); NEUTROPHILS # 12.8 10^3/uL (1.5-8.5); NEUTROPHILS % 87.8 % (36.0-66.0); PLATELET COUNT, AUTOMATED 201 10^3/uL (150-450); RED BLOOD COUNT 4.36 10^6/uL (4.00-5.40); WHITE BLOOD COUNT 14.5 10^3/uL (4.0-10.0)
[2024-05-13 05:40] LABS: BLOOD UREA NITROGEN 22 MG/DL (9-23); CALCIUM LEVEL 9.8 MG/DL (8.5-10.1); CARBON DIOXIDE LEVEL 35 MMOL/L (20-31); CHLORIDE LEVEL 105 MMOL/L (98-107); CREATININE FOR GFR 0.69 MG/DL (0.55-1.30); GLOMERULAR FILTRATION RATE > 60.0 (>51); GLUCOSE, FASTING 117 MG/DL (60-100); MAGNESIUM LEVEL 1.7 MG/DL (1.8-2.4); POTASSIUM SERUM 4.4 MMOL/L (3.5-5.1); SODIUM LEVEL 143 MMOL/L (136-145)
[2024-05-13 05:42] LABS: CK-MB VALUE MASS < 1.0 NG/ML (<3.6)
[2024-05-13 05:48] LABS: ALKALINE PHOSPHATASE 71 U/L (46-116); ALT/SGPT 40 U/L (7.0-40); AST/SGOT 30 U/L (<34); BILIRUBIN,TOTAL 0.4 MG/DL (0.3-1.2); BLOOD UREA NITROGEN 22 MG/DL (9-23); CALCIUM LEVEL 9.8 MG/DL (8.5-10.1); CARBON DIOXIDE LEVEL 36 MMOL/L (20-31); CHLORIDE LEVEL 106 MMOL/L (98-107); CPK CREATINE PHOSPHOKINASE 67 U/L (34-145); CREATININE FOR GFR 0.68 MG/DL (0.55-1.30); GLOMERULAR FILTRATION RATE > 60.0 (>51); GLUCOSE, FASTING 117 MG/DL (60-100); MB/CK RELATIVE INDEX 1.49 (< OR =4); PHOSPHORUS LEVEL 1.4 MG/DL (2.5-4.9); POTASSIUM SERUM 4.6 MMOL/L (3.5-5.1); SODIUM LEVEL 143 MMOL/L (136-145)
[2024-05-13 05:54] LABS: ABG BASE EXCESS 3.4 (-2.0-2.0); ABG HCO3 29.5 MMOL/L (22.0-26.0); ABG O2 SATURATION 94.1 % (95.0-99.0); ABG PARTIAL PRESSURE CO2 50.8 mmHg (35.0-45.0); ABG PARTIAL PRESSURE O2 66.7 mmHg (75.0-100.0); ABG STANDARD HCO3 27.4 MMOL/L. (22.0-26.0); ABG TOTAL CO2 31.1 MMOL/L (22.0-29.0); ABG pH (ARTERIAL) 7.382 UNITS (7.350-7.450)
[2024-05-13] MEDS: MAG SULF 1GM/100ML (MAG RUN) 1 GM in IV 1 EA IV SCH (06:43)
[2024-05-13] MEDS ORDERED: METHADONE 10MG TAB PO SCH (07:00)
[2024-05-13] MEDS: TIOTROPIUM INHALER/CAPSULE (SPIRIVA) INH SCH (07:32)
[2024-05-13] MEDS ORDERED: HOME MED LIST COMPLETE! XX SCH (07:40)
[2024-05-13] MEDS: NEUTRA-PHOS 1.5 GM PACKET PO SCH (09:00)
[2024-05-13] MEDS: methylPREDNISolone 40MG 1ML VIAL IV SCH (09:07)
[2024-05-13] MEDS: SUMAtriptan SUCCINATE 6MG/0.5ML VIAL SC PRN (09:28)
[2024-05-13] MEDS: KETOROLAC 30 MG/ML 1ML VIAL IV ONE (09:28)
[2024-05-13 10:37] LABS: ABG BASE EXCESS 5.3 (-2.0-2.0); ABG HCO3 33.2 MMOL/L (22.0-26.0); ABG O2 SATURATION 94.6 % (95.0-99.0); ABG PARTIAL PRESSURE O2 70.1 mmHg (75.0-100.0); ABG STANDARD HCO3 29.2 MMOL/L. (22.0-26.0); ABG TOTAL CO2 35.1 MMOL/L (22.0-29.0); ABG pH (ARTERIAL) 7.341 UNITS (7.350-7.450)
[2024-05-13 10:40] LABS: ABG PARTIAL PRESSURE CO2 62.8 mmHg (35.0-45.0)
[2024-05-13] MEDS: SODIUM PHOSPHATE INJ 30 MMOL in D5W 500 ML IV ONE (14:34)
[2024-05-13] MEDS: ONDANSETRON 4MG 2ML VIAL IV PRN (17:48)
[2024-05-13 22:04] LABS: ABG BASE EXCESS 8.2 (-2.0-2.0); ABG HCO3 33.7 MMOL/L (22.0-26.0); ABG O2 SATURATION 95.9 % (95.0-99.0); ABG PARTIAL PRESSURE CO2 49.9 mmHg (35.0-45.0); ABG PARTIAL PRESSURE O2 74.6 mmHg (75.0-100.0); ABG TOTAL CO2 35.2 MMOL/L (22.0-29.0); ABG pH (ARTERIAL) 7.447 UNITS (7.350-7.450)
[2024-05-14] VITALS (15 sets, daily range): BP systolic 119–175; BP diastolic 64–80; TEMP 97.6–98.5; O2SAT 90–98
[2024-05-14 05:06] LABS: HEMATOCRIT 39.5 % (36.0-47.0); HEMOGLOBIN 12.9 g/dl (12.0-15.5); LYMPH # 0.9 10^3/uL (1.5-5.0); LYMPH % 9.4 % (24.0-44.0); MEAN CORPUSCULAR HEMOGLOBIN 30.8 pg (27.0-33.0); MEAN CORPUSCULAR HGB CONC 32.7 g/dl (32.0-36.5); MEAN CORPUSCULAR VOLUME 94.3 fl (80.0-96.0); MONO # 0.6 10^3/uL (0.0-0.8); MONO % 6.2 % (2.0-8.0); NEUTROPHILS # 8.4 10^3/uL (1.5-8.5); NEUTROPHILS % 83.8 % (36.0-66.0); PLATELET COUNT, AUTOMATED 186 10^3/uL (150-450); RED BLOOD COUNT 4.19 10^6/uL (4.00-5.40)
[2024-05-14] MEDS: METHADONE 10MG TAB PO SCH (05:30)
[2024-05-14 05:36] LABS: ALBUMIN 2.7 G/DL (3.2-5.2); ALKALINE PHOSPHATASE 64 U/L (46-116); ALT/SGPT 55 U/L (7.0-40); AST/SGOT 37 U/L (<34); BILIRUBIN,TOTAL 0.2 MG/DL (0.3-1.2); BLOOD UREA NITROGEN 19 MG/DL (9-23); CALCIUM LEVEL 8.6 MG/DL (8.5-10.1); CARBON DIOXIDE LEVEL 36 MMOL/L (20-31); CHLORIDE LEVEL 108 MMOL/L (98-107); CREATININE FOR GFR 0.68 MG/DL (0.55-1.30); GLOMERULAR FILTRATION RATE > 60.0 (>51); GLUCOSE, FASTING 141 MG/DL (60-100); PHOSPHORUS LEVEL 2.8 MG/DL (2.5-4.9); SODIUM LEVEL 143 MMOL/L (136-145); TOTAL PROTEIN 5.7 G/DL (5.7-8.2)
[2024-05-14 05:56] LABS: ABG BASE EXCESS 6.7 (-2.0-2.0); ABG HCO3 32.6 MMOL/L (22.0-26.0); ABG O2 SATURATION 92.3 % (95.0-99.0); ABG PARTIAL PRESSURE CO2 51.1 mmHg (35.0-45.0); ABG STANDARD HCO3 30.5 MMOL/L. (22.0-26.0); ABG TOTAL CO2 34.1 MMOL/L (22.0-29.0); ABG pH (ARTERIAL) 7.422 UNITS (7.350-7.450)
[2024-05-14] MEDS: predniSONE 20 MG TAB PO SCH (09:27)
[2024-05-14] MEDS: ENOXAPARIN 40MG/0.4ML SYRINGE (J1650 PER 10MG) SC SCH (14:14)
[2024-05-14] MEDS: amLODIPine 5 MG TAB PO SCH (14:15)
[2024-05-14 16:15] LABS: PROCALCITONIN 0.74 ng/ml
[2024-05-14 17:17] LABS: ABG BASE EXCESS 6.9 (-2.0-2.0); ABG HCO3 32.3 MMOL/L (22.0-26.0); ABG O2 SATURATION 93.8 % (95.0-99.0); ABG PARTIAL PRESSURE CO2 48.7 mmHg (35.0-45.0); ABG PARTIAL PRESSURE O2 63.8 mmHg (75.0-100.0); ABG STANDARD HCO3 30.7 MMOL/L. (22.0-26.0); ABG TOTAL CO2 33.8 MMOL/L (22.0-29.0)
[2024-05-14] MEDS: amLODIPine 5 MG TAB PO ONE (17:34)
[2024-05-14] MEDS: guaiFENesin 200 MG TAB PO PRN (21:16)
[2024-05-15] VITALS (9 sets, daily range): BP systolic 138–171; BP diastolic 65–72; TEMP 98.3–98.5; O2SAT 90–96
[2024-05-15] MEDS: hydrALAZINE 20MG/ML 1ML VIAL IV PRN (04:37)
[2024-05-15 06:22] LABS: BASO % 0.1 % (0.0-1.0); EOS % 0.2 % (0.0-3.0); HEMATOCRIT 38.5 % (36.0-47.0); HEMOGLOBIN 12.8 g/dl (12.0-15.5); LYMPH # 1.6 10^3/uL (1.5-5.0); LYMPH % 16.3 % (24.0-44.0); MEAN CORPUSCULAR HEMOGLOBIN 30.7 pg (27.0-33.0); MEAN CORPUSCULAR HGB CONC 33.2 g/dl (32.0-36.5); MEAN CORPUSCULAR VOLUME 92.3 fl (80.0-96.0); MONO # 0.6 10^3/uL (0.0-0.8); MONO % 6.1 % (2.0-8.0); NEUTROPHILS # 7.4 10^3/uL (1.5-8.5); PLATELET COUNT, AUTOMATED 201 10^3/uL (150-450); RED BLOOD COUNT 4.17 10^6/uL (4.00-5.40); WHITE BLOOD COUNT 9.6 10^3/uL (4.0-10.0)
[2024-05-15 06:42] LABS: BLOOD UREA NITROGEN 12 MG/DL (9-23); CALCIUM LEVEL 8.4 MG/DL (8.5-10.1); CARBON DIOXIDE LEVEL 34 MMOL/L (20-31); CHLORIDE LEVEL 109 MMOL/L (98-107); CREATININE FOR GFR 0.66 MG/DL (0.55-1.30); GLOMERULAR FILTRATION RATE > 60.0 (>51); GLUCOSE, FASTING 101 MG/DL (60-100); MAGNESIUM LEVEL 1.7 MG/DL (1.8-2.4); POTASSIUM SERUM 3.2 MMOL/L (3.5-5.1); SODIUM LEVEL 145 MMOL/L (136-145)
[2024-05-15] MEDS: MAG SULF 1GM/100ML (MAG RUN) 1 GM in IV 1 EA IV SCH (08:25)
[2024-05-15] MEDS: POTASSIUM CHLORIDE 10MEQ SR TABLET PO ONE (08:26)
[2024-05-15] MEDS ORDERED: IPRATROPIUM 0.5MG/ALBUTEROL 2.5MG INH SOL UD 3ML (DUONEB) NEB PRN (13:00)
[2024-05-15] MEDS ORDERED: MUCI600T31 PO (13:01)
[2024-05-15] MEDS ORDERED: LEVO1TAB40 PO (13:01)
[2024-05-15] MEDS ORDERED: PRED10TA2 PO (13:01)
[2024-05-15] MEDS ORDERED: AMLO1TAB25 PO (13:01)
[2024-05-15] MEDS ORDERED: ALBU8.5H INH (13:01)
[2024-05-15] MEDS ORDERED: ANOR1AER PO (13:01)
[2024-05-15] MEDS ORDERED: STIO1AER IN (14:31)
[2024-05-15] MEDS ORDERED: BREO1INH INH (14:35)
[2024-05-17 21:11] LABS: URINE STREP PNEUMONIAE ANTIGEN NOT DETECTED (NOT DETECT)
== END 2024-05-15 15:28 | disposition home or self-care (01) | DRG 133 ==
LOC: M ED 18:01 → EDBD 18:01 → M ED INP 23:58 → M ICU 05-12 00:45 → M PCU 05-15 07:42
PROVIDERS: ADMIT Student in an Organized Health Care Education/Training Program; ATTEND Internal Medicine
DX: J96.02 Acute respiratory failure with hypercapnia (principal); G93.41 Metabolic encephalopathy; E87.4 Mixed disorder of acid-base balance; J18.9 Pneumonia, unspecified organism; I24.89 Other forms of acute ischemic heart disease; F11.20 Opioid dependence, uncomplicated; J44.1 Chronic obstructive pulmonary disease with (acute) exacerbation; E83.42 Hypomagnesemia; J96.01 Acute respiratory failure with hypoxia; I25.118 Atherosclerotic heart disease of native coronary artery with other forms of angina pectoris; G47.31 Primary central sleep apnea; I10 Essential (primary) hypertension; E78.5 Hyperlipidemia, unspecified; F17.200 Nicotine dependence, unspecified, uncomplicated; E07.81 Sick-euthyroid syndrome; R73.9 Hyperglycemia, unspecified; G43.909 Migraine, unspecified, not intractable, without status migrainosus; E87.6 Hypokalemia; Z79.899 Other long term (current) drug therapy

== ENCOUNTER → 2024-05-27 | Outpatient (CLI) | payer BC ==
[~2024-05-27] MED LIST changes: +ALBU8.5H INH; +AMLO1TAB25 PO; +ANOR1AER PO; +APAP500T10 PO; +BREO1INH INH; +LEVO1TAB40 PO; +MUCI600T31 PO; +MULTTAB61 PO; +ONDA-83 PO; +STIO1AER IN
[2024-05-27 18:12] LABS: CREATININE, URINE 133.3 MG/DL; MALB URINE SIEMENS < 3.0 MG/L; MAU/CREAT RATIO 2.2 MCG/MG (0.0-30.0)
[2024-05-27 18:16] LABS: ALBUMIN 3.6 G/DL (3.2-5.2); BLOOD UREA NITROGEN 19 MG/DL (9-23); CALCIUM LEVEL 9.7 MG/DL (8.5-10.1); CARBON DIOXIDE LEVEL 31 MMOL/L (20-31); CHLORIDE LEVEL 103 MMOL/L (98-107); CREATININE FOR GFR 0.87 MG/DL (0.55-1.30); GLOMERULAR FILTRATION RATE > 60.0 (>51); GLUCOSE, FASTING 92 MG/DL (60-100); MAGNESIUM LEVEL 1.9 MG/DL (1.8-2.4); PHOSPHORUS LEVEL 4.3 MG/DL (2.5-4.9); SODIUM LEVEL 142 MMOL/L (136-145)
== END ==
LOC: M PLALAB 14:08
PROVIDERS: ATTEND Student in an Organized Health Care Education/Training Program
DX: I10 Essential (primary) hypertension (principal); E87.8 Other disorders of electrolyte and fluid balance, not elsewhere classified

== ENCOUNTER → 2024-06-12 | Outpatient (REF) | payer BC | LOC: M SFHCPLAZ 09:45 | PROVIDERS: ATTEND Student in an Organized Health Care Education/Training Program | DX: R05.8 Other specified cough (principal) ==

== ENCOUNTER → 2024-06-15 | Outpatient (CLI) | payer BC | LOC: M SLEEP 20:00 | PROVIDERS: ATTEND Internal Medicine Critical Care Medicine | DX: G47.33 Obstructive sleep apnea (adult) (pediatric) (principal); G47.31 Primary central sleep apnea ==

== ENCOUNTER → 2024-09-04 | Outpatient (CLI) | payer BC | LOC: M SLEEP 20:00 | PROVIDERS: ATTEND Internal Medicine Critical Care Medicine | DX: G47.33 Obstructive sleep apnea (adult) (pediatric) (principal) ==

== ENCOUNTER → 2024-12-10 | Outpatient (CLI) | payer BC ==
[2024-12-10 07:03] LABS: BASO % 0.6 % (0.0-1.0); EOS # 0.2 10^3/uL (0.0-0.5); EOS % 3.5 % (0.0-3.0); HEMATOCRIT 40.6 % (36.0-47.0); HEMOGLOBIN 13.9 g/dl (12.0-15.5); LYMPH # 1.6 10^3/uL (1.5-5.0); LYMPH % 31.3 % (24.0-44.0); MEAN CORPUSCULAR HEMOGLOBIN 30.3 pg (27.0-33.0); MEAN CORPUSCULAR HGB CONC 34.2 g/dl (32.0-36.5); MEAN CORPUSCULAR VOLUME 88.5 fl (80.0-96.0); MONO # 0.5 10^3/uL (0.0-0.8); MONO % 8.9 % (2.0-8.0); NEUTROPHILS # 2.8 10^3/uL (1.5-8.5); NEUTROPHILS % 55.5 % (36.0-66.0); PLATELET COUNT, AUTOMATED 217 10^3/uL (150-450); RED BLOOD COUNT 4.59 10^6/uL (4.00-5.40); WHITE BLOOD COUNT 5.1 10^3/uL (4.0-10.0)
[2024-12-10 07:25] LABS: CREATININE, URINE 109.7 MG/DL; MALB URINE SIEMENS < 3.0 MG/L
[2024-12-10 07:32] LABS: ALBUMIN 4.2 G/DL (3.2-5.2); BILIRUBIN,TOTAL 0.7 MG/DL (0.3-1.2); CALCIUM LEVEL 9.5 MG/DL (8.5-10.1); CHOLESTEROL RISK RATIO 2.32 (<5); CREATININE FOR GFR 0.8 MG/DL (0.55-1.30); GLOMERULAR FILTRATION RATE 84.8 (>51); HDL CHOLESTEROL 56.3 MG/DL (>40); LDL CHOLESTEROL 60.7 MG/DL (<100); NON-HDL-C 74.7 MG/DL; POTASSIUM SERUM 4.4 MMOL/L (3.5-5.1); THYROID STIMULATING HORMONE 1.984 uIU/ML (0.55-4.78); TOTAL 25(OH) VITAMIN D 24.6 NG/ML (20.0-100.0)
[2024-12-10 07:41] LABS: HEMOGLOBIN A1c 5.1 % (4.0-6.0)
== END ==
LOC: M LAB 06:13
PROVIDERS: ATTEND Student in an Organized Health Care Education/Training Program
DX: Z00.00 Encounter for general adult medical examination without abnormal findings (principal); E55.9 Vitamin D deficiency, unspecified

== ENCOUNTER → 2025-07-11 | Outpatient (REF) | LOC: M EMP 16:09 | PROVIDERS: ATTEND Family Medicine | DX: Z11.59 Encounter for screening for other viral diseases (principal) ==